=== PATIENT | female | born 2000 | race Hispanic/Latino ===

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

== ENCOUNTER 2021-12-03 12:10 | Observation (INO) | payer MEDICAID, OTHER ==
[~2021-12-03 12:10] MED LIST: Iopamidol 370 76% 100 ML VIAL ONE
[2021-12-03 12:47] LABS: #Monocytes 0.4 10x3/uL (0.0-1.1); #Neutrophils 6.5 10x3/uL (1.5-8.4); %Basophils 0.1 % (0.0-2.0); %Eosinophils 0.1 % (0.0-6.0); %Lymphocytes 10.8 % (18.0-47.0); %Monocytes 5.2 % (0.0-10.0); %Neutrophils 82.8 % (40.0-75.0); Hemoglobin 11.4 g/dL (12.0-15.5); Mean Corpuscular HGB CONC 32.9 g/dL (32.0-36.0); Mean Corpuscular Hemoglobin 27.8 pg (27.0-33.0); Mean Corpuscular Volume 84.6 fl (81.6-98.3); Mean Platelet Volume 9.3 fl (7.4-10.4); Platelet Count 256 10x3/uL (150-450); RBC Distribution Width 14.4 % (11.5-14.5); White Blood Cell (WBC) Count 7.9 10x3/uL (3.5-10.5)
[2021-12-03 12:53] LABS: ALT (SGPT) 42 U/L (8-55); AST (SGOT) 43 U/L (5-34); Albumin 3.6 g/dL (3.5-5.0); Alkaline Phosphatase 116 U/L (40-100); Anion Gap 12 mmol/L (10-20); BUN (Urea Nitrogen) 11 mg/dL (7.0-18.7); Bilirubin, Total 0.7 mg/dL (0.2-1.2); Calc. Creatinine Clearance 0 mL/min (70-130); Calcium 8.1 mg/dL (7.8-10.44); Carbon Dioxide 22 mmol/L (22-29); Chloride 110 mmol/L (98-107); Estimated GFR 123; Globulin 2.6 g/dL (2.4-3.5); Glucose 103 mg/dL (70-105); Potassium 3.8 mmol/L (3.5-5.1); Protein, Total 6.2 g/dL (6.0-8.3); Sodium 140 mmol/L (136-145)
[2021-12-03 13:14] LABS: CKMB 0.6 ng/mL (0-6.6)
[2021-12-03 13:17] LABS: Bilirubin Neg (Negative); Blood, Urine 250 (Negative); Clarity Cloudy (Clear); Glucose, Urine (Dipstick) Normal (Negative); Ketone, Urine 5 mg/dL (Negative); Leukocyte 100 (Negative); Nitrite Negative (Negative); Protein, Urine (Dipstick) 30 mg/dl (Neg-Trace); Urobilinogen Normal mg/dL (Less than 2); pH, Urine 6.5 (5.0-9.0)
[2021-12-03 13:24] LABS: Amphetamine Not Detected (NotDetected); Barbiturates Screen Not Detected (NotDetected); Benzodiazepine Screen Not Detected (NotDetected); Cocaine Metabolite Screen Not Detected (NotDetected); Methadone Not Detected (NotDetected); Methamphetamine Not Detected (NotDetected); Opiate Screen Not Detected (NotDetected); Oxycodone Screen Not Detected (NotDetected); Phencyclidine (PCP) Not Detected (NotDetected); THC/Cannabinoid Screen Not Detected (NotDetected); Tricyclic Screen Not Detected (NotDetected)
[2021-12-03 13:25] LABS: Pregnancy Test - Urine (BHCG) Negative (Negative); Pregu Control Background? CLEAR/WHITE (CLR/WHITE); Pregu Control Bar Appear? YES (CONTROL BAR)
[2021-12-03 13:27] LABS: RBC/HPF 21-50 HPF (0-3)
[2021-12-03 13:30] LABS: Bacteria/HPF 2+ HPF (None Seen); Mucous/LPF 2+ LPF (<2+)
[2021-12-03 13:49] LABS: SARS-CoV-2 NAA Rapid Test DETECTED (NotDetected)
[2021-12-03] MEDS ORDERED: Acetaminophen 650 MG Suppository PR PRN (14:52)
[2021-12-03] MEDS ORDERED: Acetaminophen 325 MG TAB PO PRN (14:52)
[2021-12-03] MEDS ORDERED: Lactated Ringer's 1,000 ML IV SCH (15:00)
[2021-12-03 15:28] VITALS: BMI 31.5
[2021-12-03 16:28] LABS: Troponin I 0.075 ng/mL (< 0.028)
[2021-12-03] MEDS: Lactated Ringer's 1,000 ML IV SCH (18:07)
[2021-12-03] MEDS ORDERED: Albuterol 200 PUFF (6.7GM INHALER) INH PRN (18:30)
[2021-12-03] MEDS: Benzonatate 100 MG CAP PO PRN (22:02)
[2021-12-04] MEDS: Lactated Ringer's 1,000 ML IV SCH ×2 (01:12→08:39)
[2021-12-04 04:45] LABS: Hemoglobin 10.7 g/dL (12.0-15.5); Mean Corpuscular HGB CONC 33.4 g/dL (32.0-36.0); Mean Corpuscular Hemoglobin 28.2 pg (27.0-33.0); Mean Corpuscular Volume 84.4 fl (81.6-98.3); Mean Platelet Volume 9.2 fl (7.4-10.4); Platelet Count 238 10x3/uL (150-450); RBC Distribution Width 14.6 % (11.5-14.5); Red Blood Cell (RBC) Count 3.79 10x6/uL (3.90-5.03); White Blood Cell (WBC) Count 7.1 10x3/uL (3.5-10.5)
[2021-12-04 04:58] LABS: ALT (SGPT) 56 U/L (8-55); AST (SGOT) 50 U/L (5-34); Albumin 3.2 g/dL (3.5-5.0); Alkaline Phosphatase 91 U/L (40-100); Anion Gap 13 mmol/L (10-20); BUN (Urea Nitrogen) 6 mg/dL (7.0-18.7); Bilirubin, Total 0.5 mg/dL (0.2-1.2); Calc. Creatinine Clearance 206 mL/min (70-130); Calcium 8.2 mg/dL (7.8-10.44); Carbon Dioxide 22 mmol/L (22-29); Chloride 108 mmol/L (98-107); Estimated GFR 132; Globulin 2.8 g/dL (2.4-3.5); Glucose 99 mg/dL (70-105); Potassium 3.6 mmol/L (3.5-5.1); Sodium 139 mmol/L (136-145)
[2021-12-04 05:06] LABS: MDiff Complete? YES; Manual Diff?? YES
[2021-12-04 05:15] LABS: Band 18 % (5-11); Lymphocytes 11 % (28-48); Metamyelocyte 1 % (0-0); Monocytes 5 % (0-4); Neutrophil 64 % (31-61); Reactive Lymphocytes 1 % (0-10)
[2021-12-04 05:16] LABS: Platelet Morphology Comment Appears Adequate; Vacuoles SLIGHT
[2021-12-04 05:17] LABS: Dohle Bodies SLIGHT
[2021-12-04] MEDS ORDERED: Ondansetron PF 4 MG/2 ML Vial IVP SCH (06:15)
[2021-12-04] MEDS: Docusate 100 MG CAP PO PRN (08:38)
[2021-12-04] MEDS: Cholecalciferol (Vitamin D3) 400 UNITS TAB PO SCH (08:38)
[2021-12-04] MEDS: Ascorbic Acid 500 mg Chewable Tablet PO SCH (08:38)
[2021-12-04] MEDS: Enoxaparin Sodium 40 MG/0.4 ML SYRINGE SC SCH (08:38)
[2021-12-04] MEDS: Benzonatate 100 MG CAP PO PRN (08:38)
[2021-12-04] MEDS: Zinc Sulfate 220 MG CAP PO SCH (08:38)
[2021-12-04] MEDS: Docusate Calcium (SURFAK) 240 MG CAP PO SCH ×2 (08:39→20:24)
[2021-12-04] MEDS: Prenatal Vitamin 1 TAB PO SCH (08:39)
[2021-12-04 10:37] LABS: Hemoglobin A1c 5.5 % (4.0-6.0)
[2021-12-05 03:56] LABS: Hemoglobin 11.7 g/dL (12.0-15.5); Mean Corpuscular HGB CONC 32.9 g/dL (32.0-36.0); Mean Corpuscular Volume 85.2 fl (81.6-98.3); Mean Platelet Volume 9.7 fl (7.4-10.4); Platelet Count 261 10x3/uL (150-450); RBC Distribution Width 14.6 % (11.5-14.5); Red Blood Cell (RBC) Count 4.18 10x6/uL (3.90-5.03); White Blood Cell (WBC) Count 4.9 10x3/uL (3.5-10.5)
[2021-12-05 04:13] LABS: MDiff Complete? YES; Manual Diff?? YES
[2021-12-05 04:18] LABS: ALT (SGPT) 47 U/L (8-55); AST (SGOT) 36 U/L (5-34); Albumin 3.4 g/dL (3.5-5.0); Alkaline Phosphatase 113 U/L (40-100); Anion Gap 14 mmol/L (10-20); BUN (Urea Nitrogen) 5 mg/dL (7.0-18.7); Bilirubin, Total 0.4 mg/dL (0.2-1.2); Calc. Creatinine Clearance 203 mL/min (70-130); Calcium 8.4 mg/dL (7.8-10.44); Carbon Dioxide 23 mmol/L (22-29); Cardiac Risk 3.1 (Less than 4.5); Chloride 106 mmol/L (98-107); Cholesterol 103 mg/dl (< 200 Desired); Estimated GFR 132; Globulin 3.2 g/dL (2.4-3.5); Glucose 114 mg/dL (70-105); HDL Cholesterol 33 mg/dL (>60 Neg Risk); LDL Cholesterol, Calculated 36 mg/dL; Magnesium 1.9 mg/dL (1.7-2.2); Potassium 3.5 mmol/L (3.5-5.1); Protein, Total 6.6 g/dL (6.0-8.3); Sodium 139 mmol/L (136-145); Triglycerides 169 mg/dL (Less than 150)
[2021-12-05 04:24] LABS: Band 23 % (5-11); Eosinophils 1 % (0-10); Lymphocytes 32 % (28-48); Monocytes 9 % (0-4); Neutrophil 35 % (31-61)
[2021-12-05 04:25] LABS: Platelet Morphology Comment Appears Adequate
[2021-12-05] MEDS: Ascorbic Acid 500 mg Chewable Tablet PO SCH (08:03)
[2021-12-05] MEDS: Enoxaparin Sodium 40 MG/0.4 ML SYRINGE SC SCH (08:03)
[2021-12-05] MEDS: Benzonatate 100 MG CAP PO PRN (08:03)
[2021-12-05] MEDS: Cholecalciferol (Vitamin D3) 400 UNITS TAB PO SCH (08:03)
[2021-12-05] MEDS: Docusate Calcium (SURFAK) 240 MG CAP PO SCH (08:03)
[2021-12-05] MEDS: Prenatal Vitamin 1 TAB PO SCH (08:03)
[2021-12-05] MEDS: Docusate 100 MG CAP PO PRN (08:03)
[2021-12-05] MEDS: Zinc Sulfate 220 MG CAP PO SCH (08:03)
[2021-12-05 13:08] LABS: HBSAg Index 0.31 S/CO (0-0.99); Hep A IgM AB Non-Reactive (NonReactive); Hep A IgM S/CO 0.36 S/CO (0-0.79); Hep B Surf Ag Non-Reactive S/CO (NonReactive); Hep C IgG Ab Non-Reactive (NonReactive); Hep C Index 0.13 S/CO (0-0.79); Hepatitis B Core IgM Abs Non-Reactive (NonReactive)
[2021-12-05 13:23] VITALS: BP 105/66; TEMP 98.6
== END 2021-12-05 14:19 | disposition home or self-care (01) ==
LOC: CSHERS 12:10 → CSHTELE 15:03 → INTOOBSV 15:03
PROVIDERS: ADMIT Family Medicine; ATTEND Family Medicine
DX: U07.1 COVID-19 (principal); R07.2 Precordial pain; D72.825 Bandemia; R82.90 Unspecified abnormal findings in urine; J45.909 Unspecified asthma, uncomplicated; K80.20 Calculus of gallbladder without cholecystitis without obstruction; K76.0 Fatty (change of) liver, not elsewhere classified; E66.9 Obesity, unspecified; Z68.31 Body mass index [BMI] 31.0-31.9, adult; Z79.899 Other long term (current) drug therapy
CPT/HCPCS: 36415; 71045; 71275; 76705; 80053; 80061; 80074; 80306; 81003; 81015; 81025; 82553; 83036; 83605; 83735; 83880; 84443; 84484; 85025; 85379; 86140; 87040; 93005; 93306; 93970; 94760; 96372; 96374; G0378; J1650; J2405; J7120; Q9967